=== PATIENT | male | born 1965 | race Caucasian/White ===

== ENCOUNTER 2020-09-01 14:47 | Inpatient (IN) | payer OTHER, BC ==
[~2020-09-01] VITALS: Ht 175.3 cm; Wt 68.0 kg
[2020-09-01 15:32] LABS: BASOPHILS ABSOLUTE AUTO 0.11 K/mm3 (0.00-0.23); BASOPHILS PERCENT AUTO 1 % (0-2); EOSINOPHILS ABSOLUTE AUTO 0.09 K/mm3 (0.00-0.68); EOSINOPHILS PERCENT AUTO 1 % (0-6); Hematocrit 49.8 % (37.0-53.0); Hemoglobin 17.2 g/dL (13.5-17.5); IMMATURE GRAN PERCENT AUTO 1 % (0-1); LYMPHOCYTES ABSOLUTE AUTO 1.97 K/mm3 (0.84-5.20); LYMPHOCYTES PERCENT AUTO 13 % (21-46); MONOCYTES ABSOLUTE AUTO 1.11 K/mm3 (0.16-1.47); MONOCYTES PERCENT AUTO 7 % (4-13); Mean Corpuscular HGB 29.2 pg (26.0-34.0); Mean Corpuscular HGB Conc 34.5 g/dL (31.5-36.5); Mean Corpuscular Volume 84 fL (80-100); Mean Platelet Volume 11.4 fL (9.1-12.4); NEUTROPHILS ABSOLUTE AUTO 12.35 K/mm3 (1.96-9.15); NEUTROPHILS PERCENT AUTO 79 % (41-73); Platelet Count 266 K/mm3 (150-400); RDW Coefficient Variation 13.8 % (11.7-14.2); RDW Standard Deviation 42.8 fL (35.1-46.3); White Blood Cell Count 15.73 K/mm3 (4.00-11.30)
[2020-09-01 16:08] LABS: Alanine Aminotransfer (ALT/SGP 26 U/L (12-78); Albumin, Blood 3.4 g/dL (3.4-5.0); Albumin/Globulin Ratio 0.7 (0.8-1.8); Alk Phos 128 U/L (50-136); Anion Gap 6 mmol/L (6-16); Aspartate Aminotrans (AST/SGOT 21 U/L (12-37); Bilirubin, Total 0.2 mg/dL (0.1-1.0); Blood Urea Nitrogen 10 mg/dL (8-24); Bun/Creatinine Ratio 11.2 (12.0-20.0); CO2, Blood 25 mmol/L (21-32); Calcium, Blood 9.2 mg/dL (8.5-10.1); Chloride, Blood 107 mmol/L (98-108); Creatinine, Blood 0.89 mg/dL (0.60-1.20); Globulin, Blood 4.7 g/dL (2.2-4.0); Glomerular Filtration Rate >60 (60-); Glucose, Blood 133 mg/dL (70-99); Potassium, Blood 3.9 mmol/L (3.5-5.5); Sodium, Blood 138 mmol/L (136-145); Total Protein, Blood 8.1 g/dL (6.4-8.2)
[2020-09-01 16:09] LABS: Troponin I 0.535 ng/mL (0.000-0.040)
[2020-09-01 19:30] LABS: International Normalized Ratio 0.98; Prothrombin Time Results 10.6 Sec (9.7-11.5)
--- NOTE | 2020-09-01 20:52 | NUR ---
UPDATE DR GAINES NOTIFIED OF PATIENTS CRITICALLY HIGH TROPONIN. DR PIPER STATED HE SPOKE WITH DR LUCERO IN THE ER BUT HE SAID TO PUT IN AN OFFICAL CONSULT FOR CARDIOLOGY IN AND THEN CALL DR LUCERO WITH TROPONIN RESULTS.
--- NOTE | 2020-09-01 20:53 | NUR ---
DR LUCERO NOTIFIED DR LUCERO CALLED AND NOTIFIED OF PATIENTS TROPONIN. DR LUCERO ALSO NOTIFIED OF PATIENTS CONTINUED CHEST PAIN OF 8/10 THAT IS UNRELIEVED WITH NITRO PASTE AND MORPHINE, HOWEVER, PATIENT APPEARS TO BE RESTING COMFORTABLY AT THIS TIME AND IS STATING THAT HE IS GOING TO TRY TO SLEEP. PATIENT CURRENTLY ON A HEPARIN GTT. PATIENT STATES HE WILL CALL RN IF HE WOULD LIKE TO TRY MORE MORPHINE FOR PAIN. DR LUCERO ALSO STATED IT WAS FINE FOR PATIENT TO EAT AND DRINK UP UNTIL 0000.
--- NOTE | 2020-09-02 00:46 | NUR ---
UPDATE PATIENT MEDICATED FOR CHEST PAIN WITH MORPHINE X ONE SINCE ARRIVAL TO THE FLOOR PATIENT REPORTS MORPHINE BROUGHT PAIN DOWN FROM A 7/10 TO A 5/10. PATIENT REPORTS A 5/10 IS TOLERABLE AT THIS TIME. PATIENT REQUESTED TYLENOL FOR HEADACHE PAIN WHICH PATIENT HAD TROUBLE RATING ON A SCALE OF 0-10. HOWEVER, PATIENT DENIES THE NEED FOR ANOTHER DOSE OF MORPHINE AT THIS TIME. PATIENT RESTING IN BED ATTEMPTING TO SLEEP. PATIENT EDUCATED TO NOTIFY RN IF CHEST PAIN WORSENS OR CHANGES, PATIENT VERBALIZED UNDERSTANDING. CALL LIGHT IN REACH.
[2020-09-02 04:51] LABS: Hematocrit 44.3 % (37.0-53.0); Mean Corpuscular HGB 28.6 pg (26.0-34.0); Mean Corpuscular HGB Conc 33.9 g/dL (31.5-36.5); Mean Corpuscular Volume 84 fL (80-100); Mean Platelet Volume 11.8 fL (9.1-12.4); Platelet Count 255 K/mm3 (150-400); RDW Coefficient Variation 13.7 % (11.7-14.2); RDW Standard Deviation 42.5 fL (35.1-46.3); Red Blood Cell Count 5.25 M/mm3 (4.30-5.90); White Blood Cell Count 18.21 K/mm3 (4.00-11.30)
[2020-09-02 05:17] LABS: Alanine Aminotransfer (ALT/SGP 48 U/L (12-78); Albumin/Globulin Ratio 0.8 (0.8-1.8); Alk Phos 110 U/L (50-136); Anion Gap 5 mmol/L (6-16); Aspartate Aminotrans (AST/SGOT 219 U/L (12-37); Bilirubin, Total 0.6 mg/dL (0.1-1.0); Blood Urea Nitrogen 10 mg/dL (8-24); Bun/Creatinine Ratio 11.3 (12.0-20.0); CO2, Blood 24 mmol/L (21-32); Calcium, Blood 8.6 mg/dL (8.5-10.1); Chloride, Blood 109 mmol/L (98-108); Creatinine, Blood 0.88 mg/dL (0.60-1.20); Glomerular Filtration Rate >60 (60-); Glucose, Blood 99 mg/dL (70-99); Magnesium, Blood 1.9 mg/dL (1.6-2.4); Phosphorus, Blood 3.3 mg/dL (2.5-4.9); Potassium, Blood 4.1 mmol/L (3.5-5.5); Sodium, Blood 138 mmol/L (136-145)
--- NOTE | 2020-09-02 06:28 | NUR ---
SHIFT SUMMARY PATIENT APPEARED TO BE ABLE TO SLEEP ON AND OFF THROUGHOUT THE NIGHT. PAIN MEDICATION GIVEN FOR CHEST PAIN AND HEADACHE CHARTED. PATIENT DECLINED THE OFFER OF PAIN MEDICATION SEVERAL TIMES AND REQUESTED TO CONTINUE TAKING 1 MG OF MORPHINE AT A TIME THROUGHOUT THE NIGHT. HEPARIN GTT RUNNING PER ORDERS, IV FLUIDS RUNNING PER ORDERS. VITAL SIGNS CHARTED. PATIENT APPEARS TO BE MOVING SELF ABOUT IN BED WELL AND APPEARS TO BE ASLEEP AT THIS TIME, RESPIRATIONS EVEN AND UNALOBRED. PATIENT HAS BEEN NPO SINCE MIDNIGHT. WILL CONTINUE CURRENT PLAN OF CARE AND REPORT TO ONCOMING RN.
--- NOTE | 2020-09-02 08:14 | NUR ---
c/o chest pressure/pain this morning at time of bedside report, about an hour ago. He was given 2 mg morphine, which relieved his pain from 8/10 to 6/10, which he said was tolerable. NO diaphoresis, no dyspnea nor hypoxia. He is resting in bed, NPO after taking morning medications. Heparin gtt verified at bedside with cecelia Abraham RN.
[2020-09-02 11:27] LABS: Influenza A, PCR NEGATIVE (NEGATIVE); Influenza B, PCR NEGATIVE (NEGATIVE); Resp Syncytial Virus, PCR NEGATIVE (NEGATIVE); SARS-Cov-2 (COVID-19) PCR, MMC NEGATIVE (NEGATIVE)
--- NOTE | 2020-09-02 14:27 | NUR ---
APPROX 12 NOON: Pt was taken by Sarah Beth Germain RN from [facility] for angiogram.
--- NOTE | 2020-09-02 15:08 | NUR ---
Pt [facility]U 2. Alert, oriented, talking with anay Mojica at the bedside. Bedside report rec'd from Katya Bhatt. Pt denies any pain at this time, states that he did have some high pressure on the right wrist and that it was painful when they were applying the TR band to the wrist. Right wrist site is without swelling, bleeding, hematoma or bruising. White immobilizer board in place. Aggrastat infusing as well as NS as prescribed rates, verified with Katya at bedside, Shaun ashley RN also present. IV sites are both WNL. Pt has food and drink prescribed to him, at the bedside within his reach. Vital signs also WNL. m
[2020-09-02 15:46] LABS: CHOL/HDL RATIO 5.4; Cholesterol 190 mg/dL (50-200); HDL Cholesterol 35 mg/dL (>39); LDL/HDL RATIO 3.7; Low Density Lipoprotein Chol 131 mg/dL (0-110); Triglycerides 120 mg/dL (30-160); Very Low Density Lipoprot Chol 24 mg/dL (6-32)
--- NOTE | 2020-09-02 17:06 | NUR ---
1911 Notified by [employer] that pt converted to atrial fibrillation, rate 90-105, blood pressure stable. He denies chest pain, denies palpitations, but does say he is having mild shortness of breath. No noted distress. He appears calm, RR 16-20 and spo2 96% on room air. Noted afib on the monitor. Pt states he is having some mild anxiety. Denies headache, tremors, hallucinations. He is alert and oriented x 4. Librium 25 mg given for anxiety and possible mild withdrawl symptoms. TR band remains in place, WNL.
--- NOTE | 2020-09-02 17:15 | NUR ---
2 cc air removed from TR band. Site WNL.
--- NOTE | 2020-09-02 19:30 | NUR ---
[address] Castaneda to restart the heparin gtt. TR band deflation was started at 1700 and completed at 1800; at 1830 noted that the site had bled and reached the borders of the TR band on the medial wrist. Pressure was applied, TR band reinflated with 4 cc air and the area cleaned up as much as possible with the TR band still in place in order to better visualize the area. NO further bleeding/oozing was noted. No evidence of bruising, hematoma or swelling. Pt denied any pain/numbness/tingling in his arm, hand or fingers on the right. White immoblizer board was replaced.
--- NOTE | 2020-09-02 19:33 | NUR ---
1900 heparin gtt restarted per orders, and TR band site is unchanged from the last assessment. Pt denies dyspnea, chest pain or other discomfort at the time of bedside report. Aggrastat Gtt stopped at 1900, per orders.
--- NOTE | 2020-09-02 23:44 | NUR ---
UPDATE TR BAND COMPLETELY DEFLATED AT APPROX 2340. NO NEW BLEEDING NOTED AT THIS TIME. ARMBOARD IN PLACE.
--- NOTE | 2020-09-03 02:08 | NUR ---
UPDATE TR BAND REMOVED AT THIS TIME AND TEGADERM PLACED. ARMBOARD IN PLACE. NO NEW BLEEDING NOTED. NO BRUISING OR LUMPS NOTED TO SITE.
--- NOTE | 2020-09-03 02:10 | NUR ---
SINUS RHYTHM RAILWAY SIGNAL TECHNICIAN CALLED AND NOTIFIED PRIMARY RN THAT PATIENT HAD CONVERTED TO SINUS RHYTHM, HEART RATE IN THE 80'S.
[2020-09-03 02:11] LABS: BASOPHILS ABSOLUTE AUTO 0.12 K/mm3 (0.00-0.23); BASOPHILS PERCENT AUTO 1 % (0-2); EOSINOPHILS ABSOLUTE AUTO 0.25 K/mm3 (0.00-0.68); EOSINOPHILS PERCENT AUTO 2 % (0-6); Hematocrit 46.9 % (37.0-53.0); Hemoglobin 16.3 g/dL (13.5-17.5); IMMATURE GRAN ABSOLUTE AUTO 0.13 K/mm3 (0.00-0.10); IMMATURE GRAN PERCENT AUTO 1 % (0-1); LYMPHOCYTES ABSOLUTE AUTO 3.38 K/mm3 (0.84-5.20); LYMPHOCYTES PERCENT AUTO 22 % (21-46); MONOCYTES ABSOLUTE AUTO 1.74 K/mm3 (0.16-1.47); MONOCYTES PERCENT AUTO 11 % (4-13); Mean Corpuscular HGB 29.2 pg (26.0-34.0); Mean Corpuscular HGB Conc 34.8 g/dL (31.5-36.5); Mean Corpuscular Volume 84 fL (80-100); Mean Platelet Volume 11.2 fL (9.1-12.4); NEUTROPHILS ABSOLUTE AUTO 9.88 K/mm3 (1.96-9.15); NEUTROPHILS PERCENT AUTO 64 % (41-73); Platelet Count 235 K/mm3 (150-400); RDW Coefficient Variation 13.6 % (11.7-14.2); RDW Standard Deviation 41.9 fL (35.1-46.3); Red Blood Cell Count 5.58 M/mm3 (4.30-5.90)
[2020-09-03 02:28] LABS: Alanine Aminotransfer (ALT/SGP 49 U/L (12-78); Albumin, Blood 3.1 g/dL (3.4-5.0); Albumin/Globulin Ratio 0.8 (0.8-1.8); Alk Phos 106 U/L (50-136); Anion Gap 5 mmol/L (6-16); Aspartate Aminotrans (AST/SGOT 126 U/L (12-37); Bilirubin, Total 0.6 mg/dL (0.1-1.0); Blood Urea Nitrogen 10 mg/dL (8-24); Bun/Creatinine Ratio 11.7 (12.0-20.0); CO2, Blood 23 mmol/L (21-32); Calcium, Blood 8.6 mg/dL (8.5-10.1); Chloride, Blood 112 mmol/L (98-108); Creatinine, Blood 0.86 mg/dL (0.60-1.20); Globulin, Blood 4.1 g/dL (2.2-4.0); Glomerular Filtration Rate >60 (60-); Glucose, Blood 87 mg/dL (70-99); Magnesium, Blood 2.2 mg/dL (1.6-2.4); Phosphorus, Blood 2.2 mg/dL (2.5-4.9); Sodium, Blood 140 mmol/L (136-145); Total Protein, Blood 7.2 g/dL (6.4-8.2)
--- NOTE | 2020-09-03 05:52 | NUR ---
AFIB 130'S-140'S DR HASTINGS UPDATED THAT PATIENT'S RHYTHM HAS CONVERTED BACK TO AFIB WITH A HEART RATE IN THE 130'S-140'S. ORDER RECEIVED.
--- NOTE | 2020-09-03 06:29 | NUR ---
SHIFT SUMMARY PATIENT PLEASENT AND COOPERATIVE THROUGHOUT THE NIGHT. PATIENT DENIED ANY CHEST PAIN. PATIENT'S RIGHT RADIAL ACCESS SITE HAS A SLIGHT LUMP AT SITE BUT DOES NOT APPEAR TO HAVE ANY NEW BLEEDING. ARMBOARD IN PLACE. HEPARIN GTT RUNNING PER ORDES. PATIENT APPEARS TO BE MOVING SELF ABOUT IN BED WELL. PATIENT CURRENTLY APPEARS TO BE ASLEEP. VITAL SIGNS CHARTED. WILL CONTINUE CURRENT PLAN OF CARE AND REPORT TO ONCOMING RN.
[2020-09-03] MEDS ORDERED: ACET325 PO (09:21)
[2020-09-03] MEDS ORDERED: Aspir 8181 MG PO (09:21)
[2020-09-03] MEDS ORDERED: ATOR40TA PO (09:22)
[2020-09-03] MEDS ORDERED: METO25 PO (09:23)
[2020-09-03] MEDS ORDERED: NICO21TP TOP (09:24)
[2020-09-03] MEDS ORDERED: NITR.4SL SL (09:25)
[2020-09-03] MEDS ORDERED: ONDA4ODT MM (09:26)
[2020-09-03] MEDS ORDERED: PANT20 PO (09:27)
[2020-09-03] MEDS ORDERED: TICA90TA PO (09:28)
[2020-09-03 09:43] LABS: CHOL/HDL RATIO 5.3; Cholesterol 196 mg/dL (50-200); HDL Cholesterol 37 mg/dL (>39); LDL/HDL RATIO 3.5; Low Density Lipoprotein Chol 129 mg/dL (0-110); Triglycerides 148 mg/dL (30-160); Very Low Density Lipoprot Chol 29 mg/dL (6-32)
--- NOTE | 2020-09-03 13:45 | NUR ---
UPDATE; SPOKE WITH DR. GAINES REGARDING CURRENT AFIB WITH RATE 120-140. LOPRESSOR ORDERS PLACED BY DR. GAINES. PT DENIES SOB OR CHEST PAIN, WILL MEDICATE PER ORDERS AND REASSESS.
[2020-09-03] MEDS ORDERED: ELIQUIS5 MG PO (14:52)
[2020-09-03] MEDS ORDERED: CLOP75 PO (14:55)
--- NOTE | 2020-09-03 16:53 | NUR ---
PATIENT WAS GIVEN DISCHARGE INSTRUCTIONS WITH CLEAR UNDERSTANDING. PATIENT IS UP AND MOVING AROUND AND WAS ABLE TO GET DRESSED. HE IS ALERT AND ORIENTED X4. NIECE IS HERE TO TAKE HIM HOME.
--- NOTE | 2020-09-03 16:56 | NUR ---
UPDATE OK TO DISCHARGE PER DR. GAINES. CURRENTLY IN SINUS RHYTHM FOR APPROX 1.5 HOURS. VSS, DISCHARGE INFORMATION REVIEWED.
--- NOTE | 2020-09-04 10:18 | NUR ---
PT CALLED [facility] AND [facility] AND HE DID NOT CONTINUOUS DRYOUT OPERATOR HIS PRESCRIPTIONS WHEN HE WAS DISCHARGED YESTERDAY, 09/03/20. PT ASKED THIS RN IF HE COULD WAIT UNTIL SUNDAY TO CONTINUOUS DRYOUT OPERATOR HIS NEW PRESCRIPTIONS. THIS RN STRONGLY ENCOURAGED PT TO HAVE HIS PRESCRIPTIONS FILLED AT A DIFFERENT PHARMACY THAT IS OPEN TODAY IT IS EXTREMELY IMPORTANT THAT HE TAKES HIS MEDICATIONS PRESCRIBED. PT VERBALIZED UNDERSTANDING AND STATED THAT BECAUSE HE DOES NOT WANT TO PAY FOR THE MEDICATIONS OUTSIDE OF THE [place] SYSTEM HE WILL WAIT UNTIL SUNDAY. PT AGAIN ENCOURAGED TO HAVE HIS MEDICATIONS FILLED TODAY AND TAKE THEM PRESCRIBED. PT DECLINED TO DO SO. PT CALLED BACK A VERY SHORT TIME LATER AND AGREES TO HAVE HIS PRESCRIPTIONS SENT TO [facility] TO CONTINUOUS DRYOUT OPERATOR TODAY. PT AGAIN INFORMED OF THE IMPORTANCE OF TAKING ALL HIS MEDICATIONS PRESCRIBED AND HE VERBALIZES UNDERSTANDING. PRESCRIPTIONS FAXED TO [facility] AT THIS TIME. PT ENCOURAGED TO CALL BACK WITH ANY QUESTIONS OR CONCERNS.
== END 2020-09-03 16:57 | disposition home or self-care (01) | DRG 247 ==
LOC: ER 14:47 → PCU 19:06 → ER 19:06 → PCU 19:47
PROVIDERS: Internal Medicine Cardiovascular Disease; Physician Assistant; ADMIT Family Medicine
PROC: 027034Z Dilation of Coronary Artery, One Artery with Drug-eluting Intraluminal Device, Percutaneous Approach (ICD-10-PCS; principal; 2020-09-02)
PROC: HZ2ZZZZ Detoxification Services for Substance Abuse Treatment (ICD-10-PCS; 2020-09-02)
PROC: B2111ZZ Fluoroscopy of Multiple Coronary Arteries using Low Osmolar Contrast (ICD-10-PCS; 2020-09-02)
PROC: 4A023N7 Measurement of Cardiac Sampling and Pressure, Left Heart, Percutaneous Approach (ICD-10-PCS; 2020-09-02)
DX: I21.4 Non-ST elevation (NSTEMI) myocardial infarction (principal); Z20.822 Contact with and (suspected) exposure to COVID-19; I25.10 Atherosclerotic heart disease of native coronary artery without angina pectoris; F17.210 Nicotine dependence, cigarettes, uncomplicated; E78.5 Hyperlipidemia, unspecified; R11.2 Nausea with vomiting, unspecified; F10.10 Alcohol abuse, uncomplicated; D72.829 Elevated white blood cell count, unspecified; Z71.6 Tobacco abuse counseling
CPT/HCPCS: 0241U; 36415; 71046; 76937; 80053; 80061; 83735; 84100; 84484; 85025; 85027; 85347; 85610; 85730; 93005; 93010; 93306; 93458; 96374; 96376; 99152; 99153; 99285-25; A9270; A9270-GY; C1725; C1769; C1874; C1887; C1894; C9113; C9600; J1644; J2060; J2250; J2270; J3010; J3246; J7030; J7040; J7050; Q9967